=== PATIENT | male | born 1975 | race African-American/Black ===

== ENCOUNTER 2021-11-25 16:44 | Inpatient (IN) | payer SELFPAY ==
[~2021-11-25] VITALS: Ht 185.4 cm; Wt 115.7 kg
[2021-11-25] MEDS ORDERED: IPRATROPIUM BROMIDE (0.02%) 0.5MG/2.5ML NEB HHN STA (17:10)
[2021-11-25] MEDS ORDERED: ALBUTEROL (0.083%) 2.5MG/3ML NEB HHN STA (17:10)
[2021-11-25] MEDS ORDERED: METHYLPREDNISOLONE SOD SUCC 125 MG/2 ML VIAL IV STA (17:10)
[2021-11-25] MEDS ORDERED: ASPIRIN 325MG EC TABLET PO ONE (17:15)
[2021-11-25] MEDS ORDERED: MAGNESIUM 2 G PREMIX 50 ML IV ONE (17:15)
[2021-11-25] MEDS ORDERED: SODIUM CHLORIDE 0.9% 1,000 ML IV ONE (17:15)
[2021-11-25 17:36] LABS: BASOPHILS % 0.3 % (0.0-2.0); CHLORIDE 104 mEq/L (98-107); EOSINOPHILS % 2.9 % (0.0-5.0); HEMATOCRIT. 49.6 % (42.0-52.0); HEMOGLOBIN. 16.1 g/dL (14.0-18.0); LYMPHOCYTES % 10.4 % (20.0-50.0); MEAN CORPUSCULAR HEMOGLOBIN 27.9 pg (28.0-32.0); MEAN PLATELET VOLUME 8.5 fl (7.4-10.4); MONOCYTES % 13.6 % (2.0-8.0); NEUTROPHILS % 72.8 % (40.0-76.0); PLATELET 349 x1000/uL (130-400); RED BLOOD CELL COUNT 5.77 mill/uL (4.7-6.1)
[2021-11-25] MEDS ORDERED: AZITHROMYCIN 500MG/250ML 250 ML IV ONE (18:15)
[2021-11-25] MEDS ORDERED: CEFTRIAXONE 1 G PREMIX 50 ML IV ONE (18:15)
[2021-11-26] MEDS ORDERED: MAGNESIUM/ALUMINUM HYDROXIDE/SIMETHICONE 30ML UDC PO PRN (09:15)
[2021-11-26] MEDS ORDERED: ACETAMINOPHEN 325MG TABLET PO PRN (09:15)
[2021-11-26] MEDS ORDERED: ONDANSETRON HCL 4MG/2ML INJ IV PRN (09:15)
[2021-11-26] MEDS ORDERED: GUAIFENESIN 200MG/10ML SUGAR FREE UDC PO PRN (09:15)
[2021-11-26] MEDS ORDERED: DOCUSATE SODIUM 100MG CAPSULE PO PRN (09:15)
[2021-11-26] MEDS ORDERED: HYDROCODONE/ACETAMINOPHEN 5/325MG TABLET PO PRN (09:15)
[2021-11-26] MEDS ORDERED: IPRATROPIUM/ALBUTEROL 0.5-3(2.5)MG/3ML NEB NEB PRN (09:15)
[2021-11-26] MEDS ORDERED: CEFTRIAXONE 1 G PREMIX 50 ML IV SCH (09:15)
[2021-11-26] MEDS ORDERED: CLONIDINE 0.1MG TABLET PO PRN (09:15)
[2021-11-26] MEDS: ENOXAPARIN 30MG/0.3ML SYR SUBCUT SCH ×2 (10:52→22:19)
[2021-11-26] MEDS ORDERED: NALOXONE HCL 0.4MG/ML VIAL IV PRN (13:45)
[2021-11-26] MEDS: METHYLPREDNISOLONE SOD SUCC 125 MG/2 ML VIAL IV SCH ×2 (14:00→22:19)
[2021-11-26] MEDS: IPRATROPIUM/ALBUTEROL 0.5-3(2.5)MG/3ML NEB HHN SCH ×2 (14:01→16:10)
[2021-11-26] MEDS: AMLODIPINE 2.5MG TABLET PO SCH (14:06)
[2021-11-26 15:31] LABS: CHLORIDE 105 mEq/L (98-107)
[2021-11-26 15:40] LABS: LDL CHOLESTEROL 86 mg/dL (5-100)
[2021-11-26 15:41] LABS: CREATINE KINASE 293 IU/L (39-308)
[2021-11-26 15:42] LABS: CREATINE KINASE MB FRACTION 7.6 ng/mL (0.5-3.6); HDL CHOLESTEROL 39 mg/dL (40-59)
[2021-11-26 18:00] VITALS: BP 148/90
[2021-11-26] MEDS ORDERED: AZITHROMYCIN 500 MG in DEXT 5% WATER 250 ML IV SCH (18:00)
[2021-11-26 18:12] VITALS: BP 148/90
[2021-11-26 20:00] VITALS: BP 146/92
[2021-11-26] MEDS: FAMOTIDINE 20MG TABLET PO SCH (22:19)
[2021-11-26] MEDS ORDERED: CEFTRIAXONE 1,000 MG in DEXTROSE 5% WATER 50 ML IV SCH (23:00)
[2021-11-27] VITALS: BP 150/92
[2021-11-27 00:31] LABS: CREATINE KINASE 223 IU/L (39-308); CREATINE KINASE MB FRACTION 5.1 ng/mL (0.5-3.6)
[2021-11-27 04:00] VITALS: BP 134/87
[2021-11-27 06:17] LABS: HEMATOCRIT. 42.6 % (42.0-52.0); HEMOGLOBIN. 14.4 g/dL (14.0-18.0); MEAN CORPUSCULAR HEMOGLOBIN 29.1 pg (28.0-32.0); MEAN CORPUSCULAR VOLUME 86.1 fL (80.0-94.0); MEAN PLATELET VOLUME 9.1 fl (7.4-10.4); PLATELET 327 x1000/uL (130-400); RED BLOOD CELL COUNT 4.95 mill/uL (4.7-6.1); RED CELL DISTRIBUTION WIDTH 13.5 % (11.6-14.6)
[2021-11-27] MEDS: METHYLPREDNISOLONE SOD SUCC 125 MG/2 ML VIAL IV SCH ×3 (06:26→22:16)
[2021-11-27 08:00] VITALS: BP 136/84
[2021-11-27] MEDS: AMLODIPINE 2.5MG TABLET PO SCH (09:48)
[2021-11-27] MEDS: FAMOTIDINE 20MG TABLET PO SCH ×2 (09:49→22:17)
[2021-11-27] MEDS: ENOXAPARIN 30MG/0.3ML SYR SUBCUT SCH ×2 (09:49→22:16)
[2021-11-27] MEDS: IPRATROPIUM/ALBUTEROL 0.5-3(2.5)MG/3ML NEB HHN SCH ×3 (13:10→21:02)
[2021-11-27 18:06] LABS: PLATELET ESTIMATE NORMAL
[2021-11-27 20:00] VITALS: BP 141/86
[2021-11-28] VITALS: BP 138/70
[2021-11-28] MEDS: IPRATROPIUM/ALBUTEROL 0.5-3(2.5)MG/3ML NEB HHN SCH ×6 (00:54→21:12)
[2021-11-28 04:00] VITALS: BP 117/73
[2021-11-28] MEDS: METHYLPREDNISOLONE SOD SUCC 125 MG/2 ML VIAL IV SCH ×2 (05:53→14:37)
[2021-11-28 08:00] VITALS: BP 143/73
[2021-11-28] MEDS: ENOXAPARIN 30MG/0.3ML SYR SUBCUT SCH ×2 (09:25→21:23)
[2021-11-28] MEDS: FAMOTIDINE 20MG TABLET PO SCH ×2 (09:25→21:22)
[2021-11-28] MEDS: AMLODIPINE 2.5MG TABLET PO SCH (09:25)
[2021-11-28 12:00] VITALS: BP 141/76
[2021-11-28 13:43] LABS: BG BASE EXCESS -0.3 mmol/L (-2.0-2.0); BG CARBOXYHEMOGLOBIN 0.4 % (0.5-1.5); BG DEOXYHEMOGLOBIN 8.3 % (0.0-5.0); BG FRACTION INSPIRED OXYGEN 21; BG HCO3 ACT 22.1 mmol/L (22.0-26.0); BG METHEMOGLOBIN 0.1 % (0.0-1.5); BG OXYGEN SATURATION 91.7 % (92.0-98.5); BG OXYHEMOGLOBIN 91.2 % (94.0-97.0); BG PCO2 30.7 mmHg (35.0-45.0); BG PH 7.476 (7.350-7.450); BG PO2 62.8 mmHg (75.0-100.0); BG SAMPLE SITE RIGHT RADIAL; BG TOTAL HEMOGLOBIN 15.4 g/dL (12.0-18.0); BG VENT MODE ROOM AIR
[2021-11-28 16:00] VITALS: BP 145/91
[2021-11-28 20:00] VITALS: BP 144/86
[2021-11-28] MEDS: METHYLPREDNISOLONE SOD SUCC 40 MG/ML VIAL IV SCH (21:31)
[2021-11-29] VITALS: BP 131/76
[2021-11-29] MEDS: IPRATROPIUM/ALBUTEROL 0.5-3(2.5)MG/3ML NEB HHN SCH ×3 (01:33→12:01)
[2021-11-29 04:00] VITALS: BP 121/65
[2021-11-29] MEDS: METHYLPREDNISOLONE SOD SUCC 40 MG/ML VIAL IV SCH (05:27)
[2021-11-29 08:00] VITALS: BP 146/83
[2021-11-29] MEDS: ENOXAPARIN 30MG/0.3ML SYR SUBCUT SCH (08:49)
[2021-11-29] MEDS: AMLODIPINE 2.5MG TABLET PO SCH (08:49)
[2021-11-29] MEDS: FAMOTIDINE 20MG TABLET PO SCH (08:49)
[2021-11-29] MEDS ORDERED: ALBU18HF2 IH (10:33)
[2021-11-29] MEDS ORDERED: AMLO2.5T45 PO (10:33)
[2021-11-29] MEDS ORDERED: FAMO20TA8 MT (10:33)
[2021-11-29] MEDS ORDERED: P20 MT (10:33)
[2021-11-29 12:00] VITALS: BP 145/84
[2021-11-29 12:57] VITALS: BP 145/84
== END 2021-11-29 13:25 | disposition home or self-care (01) | DRG 139 ==
LOC: ER 16:44 → EDBEDREQ 20:54 → EDBEDREQTM 20:54 → MICUSO 21:52 → 6WST 11-26 18:07
PROVIDERS: ADMIT Internal Medicine; ATTEND Internal Medicine
PROC: 5A09357 Assistance with Respiratory Ventilation, Less than 24 Consecutive Hours, Continuous Positive Airway Pressure (ICD-10-PCS; principal; 2021-11-25)
DX: J18.9 Pneumonia, unspecified organism (principal); J96.01 Acute respiratory failure with hypoxia; E11.65 Type 2 diabetes mellitus with hyperglycemia; I10 Essential (primary) hypertension; Z20.822 Contact with and (suspected) exposure to COVID-19; Z87.09 Personal history of other diseases of the respiratory system
CPT/HCPCS: 36415; 36600; 71045; 80048; 80053; 80061; 82375; 82550; 82553; 82805; 82962; 83036; 83735; 83880; 84145; 84443; 84484; 85025; 87070; 87426; 93005; 93970; 94640; 94660; 99285; J0456; J0696; J1650; J2920; J2930; J3475; J7030; J7060